=== PATIENT | female | born 1955 | race Caucasian/White ===

== ENCOUNTER 2020-10-11 08:54 | Day surgery (SDC) | payer OTHER, SELFPAY ==
[~2020-10-11] VITALS: Ht 157.5 cm; Wt 68.0 kg
[2020-10-11] MEDS ORDERED: DIPHENHYDRAMINE INJ 50 MG/ML VIAL ONE (09:02)
[2020-10-11] MEDS: MIDAZOLAM HCL 5 MG/5 ML VIAL ONE ×2 (10:26→10:28)
[2020-10-11 11:55] VITALS: BP_SYST 128
== END 2020-10-11 12:00 | disposition home or self-care (01) ==
LOC: SMU 08:54 → SDS 08:54
PROVIDERS: ATTEND Internal Medicine
DX: M51.16 Intervertebral disc disorders with radiculopathy, lumbar region (principal); I10 Essential (primary) hypertension; Z79.899 Other long term (current) drug therapy
CPT/HCPCS: 36415; 62323; 87426; J1200; J2250; J7030; 76000

== ENCOUNTER 2021-06-27 10:00 | Day surgery (SDC) | payer OTHER, SELFPAY ==
[~2021-06-27] VITALS: Ht 157.5 cm; Wt 68.0 kg
[~2021-06-27 10:00] MED LIST: DIPHENHYDRAMINE INJ 50 MG/ML VIAL ONE
[2021-06-27] MEDS ORDERED: methylPREDNISolone ACETATE 40 MG/ML IM ONE (10:01)
[2021-06-27] MEDS ORDERED: LIDOCAINE 2%, 20 ML MDV INJ ONE (10:01)
[2021-06-27] MEDS ORDERED: ISOVUE-300 (IOPAMIDOL) 100 ML INFUS..BTL IV ONE (10:01)
[2021-06-27] MEDS ORDERED: BUPIVACAINE /EPINEPHRINE/PF 0.25% 30 ML VIAL INJ ONE (10:01)
[2021-06-27] MEDS ORDERED: NS 1000 ML IV.SOLN IV ONE (10:01)
[2021-06-27] MEDS: MIDAZOLAM HCL 5 MG/5 ML VIAL ONE ×2 (12:04→12:08)
[2021-06-27] MEDS ORDERED: MIDAZOLAM HCL 5 MG/5 ML VIAL ONE (12:46)
[2021-06-27 17:35] VITALS: BP_SYST 118
== END 2021-06-27 13:40 | disposition home or self-care (01) ==
LOC: SDS 10:00
PROVIDERS: ATTEND Internal Medicine
DX: M51.16 Intervertebral disc disorders with radiculopathy, lumbar region (principal); M96.1 Postlaminectomy syndrome, not elsewhere classified; G89.4 Chronic pain syndrome; Z20.822 Contact with and (suspected) exposure to COVID-19; Z79.899 Other long term (current) drug therapy
CPT/HCPCS: 36415; 62323; 87426; J1030; J1200; J2001; J2250; J3490; J7030; Q9967; U0003 ×2; 76000